=== PATIENT | female | born 1970 | race Caucasian/White ===

== ENCOUNTER 2018-01-25 21:38 | Emergency (ER) | payer BC, OTHER ==
[2018-01-25 22:03] VITALS: BP 169/72; PULSE 78; RESP 14; TEMP 98.2; O2SAT 98
--- NOTE | 2018-01-25 22:48 | C.PDOC ---
History Of Present Illness Patient sts she was lifting a heavy garbage bag while turning her body earlier today. Patient now c/o pain in the mid upper back radiating to the left side of upper back. Pain is reproducible with movement. Patient denies SOB, CP, lightheadedness, weakness. Time Seen by Provider: 01/25/18 22:06 Chief Complaint (Nursing): Back Pain Past Medical History Reviewed: Historical Data, Nursing Documentation, Vital Signs Vital Signs: Last Vital Signs Temp 98.2 F 01/25/18 22:00 Pulse 78 01/25/18 22:00 Resp 14 01/25/18 22:00 BP 169/72 H 01/25/18 22:00 Pulse Ox 98 01/25/18 23:04 - Medical History PMH: Asthma Family History: States: No Known Family Hx - Social History Hx Alcohol Use: No Hx Substance Use: No - Immunization History Hx Tetanus Toxoid Vaccination: No Hx Influenza Vaccination: No Hx Pneumococcal Vaccination: No Review Of Systems Except As Marked, All Systems Reviewed And Found Negative. Physical Exam - Physical Exam Appears: Well, Non-toxic, No Acute Distress Skin: Normal Color, Warm, Dry Head: Atraumatic, Normacephalic Eye(s): bilateral: Normal Inspection Neck: Normal ROM, No Midline Cervical Tenderness, No Paracervical Tenderness Chest: Symmetrical, No Deformity, No Tenderness Cardiovascular: Rhythm Regular, No Edema Respiratory: Normal Breath Sounds, No Rales, No Rhonchi, No Wheezing Gastrointestinal/Abdominal: Bowel Sounds, Soft, No Tenderness Back: Normal Inspection, Vertebral Tenderness (dorsal spine), Paraspinal Tenderness (left upper back) Extremity: Normal ROM, No Tenderness, No Pedal Edema Neurological/Psych: Oriented x3, Normal Speech, Normal Cognition, Normal Motor, Normal Sensation ED Course And Treatment O2 Sat by Pulse Oximetry: 98 - Other Rad Dorsal spine xray X-Ray: Interpreted by Me Interpretation: No Fx, no litic lesions Progress Note: UCG- negative. Dorsal spine xray w/o pathology. Patient was treated with Ibuprofen po and Lidoderm patch. Patient is stable to be d/c home with PMD follow up. Disposition - Disposition Disposition: HOME/ ROUTINE Disposition Time: 23:03 Condition: STABLE Additional Instructions: Follow up with your PMD within 1-2 days. Return to ED if feel worse. Prescriptions: Ibuprofen [Motrin Tab] 600 mg PO Q8 #30 tab Famotidine [Pepcid] 20 mg PO BID #20 tab diaZEpam [Valium] 2 mg PO TID #15 tab Instructions: Upper Back Pain (DC) Forms: [facility] (Samoan), Work Excuse - Clinical Impression Clinical Impression: Thoracic back sprain
[2018-01-25] MEDS ORDERED: Lidocaine 5% Patch TD STA (23:01)
[2018-01-25] MEDS ORDERED: Lidocaine 5% Patch TD ONE (23:07)
--- NOTE | 2018-01-26 07:43 | RAD ---
HISTORY: pain/injury COMPARISON: No prior. FINDINGS: BONES: Vertebral body heights are maintained. Minimal dextrocurvature of the thoracic spine and minimal levocurvature visualized lumbar spine. Normal thoracic kyphosis is maintained. DISC SPACES: Disc space heights are preserved. SOFT TISSUES: Unremarkable OTHER FINDINGS: None. IMPRESSION: No thoracic spine fracture or subluxation identified.
== END 2018-01-25 23:13 | disposition home or self-care (01) ==
LOC: C.ER 21:38
DX: S23.3XXA Sprain of ligaments of thoracic spine, initial encounter (principal); X50.0XXA Overexertion from strenuous movement or load, initial encounter

== ENCOUNTER 2018-08-28 09:45 | Emergency (ER) | payer BC ==
[2018-08-28 10:13] VITALS: BP 146/83; PULSE 87; TEMP 98.2; O2SAT 99
[2018-08-28] MEDS ORDERED: Lidocaine 5% Patch TD STA (10:37)
[2018-08-28] MEDS ORDERED: Lidocaine 5% Patch TD ONE (10:44)
--- NOTE | 2018-08-28 11:19 | C.PDOC ---
History Of Present Illness 47 year old female presents to the ED for evaluation of non-radiating lower back pain for 2 days. The patient reports the pain is worse with movement, frequently lifts heavy objects at work which she believes may have triggered her current symptoms. Admits to taking Motrin with minimal relief. Denies fever, chills, tingling, numbness, urinary symptoms, and any other associated symptoms. Time Seen by Provider: 08/28/18 10:34 Chief Complaint (Nursing): Back Pain History Per: Patient History/Exam Limitations: no limitations Onset/Duration Of Symptoms: Days Current Symptoms Are (Timing): Still Present Past Medical History Reviewed: Historical Data, Nursing Documentation, Vital Signs Vital Signs: Last Vital Signs Temp 98.2 F 08/28/18 10:08 Pulse 87 08/28/18 10:08 Resp 18 08/28/18 10:08 BP 146/83 08/28/18 10:08 Pulse Ox 99 08/28/18 10:08 - Medical History PMH: Asthma, HTN Family History: States: Unknown Family Hx - Social History Hx Alcohol Use: No Hx Substance Use: No - Immunization History Hx Tetanus Toxoid Vaccination: No Hx Influenza Vaccination: No Hx Pneumococcal Vaccination: No Review Of Systems Except As Marked, All Systems Reviewed And Found Negative. Musculoskeletal: Positive for: Back Pain (lower.) Physical Exam - Physical Exam Appears: Well, Non-toxic, No Acute Distress Skin: Normal Color, Warm, Dry Head: Atraumatic, Normacephalic Eye(s): bilateral: Normal Inspection, PERRL, EOMI Nose: Normal Oral Mucosa: Moist Neck: Normal ROM, Supple Chest: Symmetrical Cardiovascular: Rhythm Regular, No Murmur Respiratory: Normal Breath Sounds, No Rales, No Rhonchi, No Wheezing Gastrointestinal/Abdominal: Normal Exam, Soft, No Tenderness Back: No Vertebral Tenderness, Paraspinal Tenderness Extremity: Bilateral: Atraumatic, Normal Color And Temperature, Normal ROM, Other ((-) straight leg test) Neurological/Psych: Oriented x3, Normal Speech, Normal Motor, Normal Sensation, Normal Reflexes ED Course And Treatment O2 Sat by Pulse Oximetry: 99 (RA) Pulse Ox Interpretation: Normal Medical Decision Making Medical Decision Making: Assessment: lower back pain Plan: -Flexeril -Lidoderm -Motrin -HCG Urine Disposition Counseled Patient/Family Regarding: Diagnosis, Need For Followup, Rx Given - Disposition Referrals: Henok De La Fuente [Non-Staff] - Disposition: HOME/ ROUTINE Disposition Time: 11:17 Condition: STABLE Additional Instructions: follow up with your doctor within 2 days call to make an appointment take medications as prescribed return to ER if symptoms worsens or progress Prescriptions: Cyclobenzaprine [Cyclobenzaprine HCl] 10 mg PO TID PRN #12 tab PRN Reason: Muscle Spasm Lidocaine 5% [Lidoderm] 1 ea TD DAILY PRN #10 patch PRN Reason: Pain, Moderate (4-7) Naproxen [Naprosyn] 500 mg PO BID PRN #16 tab PRN Reason: Pain, Moderate (4-7) Instructions: Low Back Pain in Adults Forms: General Discharge Instructions, [facility] (Slovenian), Work Excuse - Clinical Impression Clinical Impression: Low back pain - Scribe Statement The provider has reviewed the documentation as recorded by the Scribe (Constance Foster) Provider Attestation: All medical record entries made by the Scribe were at my direction and personally dictated by me. I have reviewed the chart and agree that the record accurately reflects my personal performance of the history, physical exam, medical decision making, and the department course for this patient. I have also personally directed, reviewed, and agree with the discharge instructions and disposition.
--- NOTE | 2018-08-28 11:19 | C.PDOC ---
History Of Present Illness 47 year old female presents to the ED for evaluation of non-radiating lower back pain for 2 days. The patient reports the pain is worse with movement, frequently lifts heavy objects at work which she believes may have triggered her current symptoms. Admits to taking Motrin with minimal relief. Denies fever, chills, tingling, numbness, urinary symptoms, and any other associated symptoms. Time Seen by Provider: 08/28/18 10:34 Chief Complaint (Nursing): Back Pain History Per: Patient History/Exam Limitations: no limitations Onset/Duration Of Symptoms: Days Current Symptoms Are (Timing): Still Present Past Medical History Reviewed: Historical Data, Nursing Documentation, Vital Signs Vital Signs: Last Vital Signs Temp 98.2 F 08/28/18 10:08 Pulse 87 08/28/18 10:08 Resp 18 08/28/18 10:08 BP 146/83 08/28/18 10:08 Pulse Ox 99 08/28/18 10:08 - Medical History PMH: Asthma, HTN Family History: States: Unknown Family Hx - Social History Hx Alcohol Use: No Hx Substance Use: No - Immunization History Hx Tetanus Toxoid Vaccination: No Hx Influenza Vaccination: No Hx Pneumococcal Vaccination: No Review Of Systems Except As Marked, All Systems Reviewed And Found Negative. Musculoskeletal: Positive for: Back Pain (lower.) Physical Exam - Physical Exam Appears: Well, Non-toxic, No Acute Distress Skin: Normal Color, Warm, Dry Head: Atraumatic, Normacephalic Eye(s): bilateral: Normal Inspection, PERRL, EOMI Nose: Normal Oral Mucosa: Moist Neck: Supple Chest: Symmetrical Cardiovascular: Rhythm Regular, No Murmur Respiratory: Normal Breath Sounds, No Rales, No Rhonchi, No Wheezing Gastrointestinal/Abdominal: Normal Exam, Soft, No Tenderness Extremity: Bilateral: Atraumatic, Normal Color And Temperature, Normal ROM, Other ((-) straight leg test) Pulses: Left Dorsalis Pedis: Normal, Right Dorsalis Pedis: Normal Neurological/Psych: Oriented x3, Normal Speech ED Course And Treatment O2 Sat by Pulse Oximetry: 99 (RA) Pulse Ox Interpretation: Normal Medical Decision Making Medical Decision Making: Assessment: lower back pain Plan: -Flexeril -Lidoderm -Motrin -HCG Urine Disposition - Disposition - Scribe Statement The provider has reviewed the documentation as recorded by the Scribe (Constance Foster) Provider Attestation: All medical record entries made by the Scribe were at my direction and personally dictated by me. I have reviewed the chart and agree that the record accurately reflects my personal performance of the history, physical exam, medical decision making, and the department course for this patient. I have also personally directed, reviewed, and agree with the discharge instructions and disposition.
[2018-08-28 11:32] VITALS: RESP 17
== END 2018-08-28 11:31 | disposition home or self-care (01) ==
LOC: C.ER 09:45
DX: M54.5 Low back pain (principal); I10 Essential (primary) hypertension